=== PATIENT | male | born 1990 | race Hispanic/Latino ===

== ENCOUNTER 2020-08-26 07:01 | Emergency (ER) | payer BC, SELFPAY ==
[2020-08-26] VITALS (32 sets, daily range): BP systolic 83–137; BP diastolic 47–98; PULSE 80–110; RESP 16–18; TEMP 36.8–37.1; O2SAT 78–100
--- NOTE | ~2020-08-26 | CT_ITS ---
EXAMINATION: CT brain wo con DATE: 08/26/2020 11:43 INDICATION: Migraine headache. TECHNIQUE: Computed tomography (CT) of the head was performed without intravenous contrast. The mA wa s adjusted according to patient size. Iterative reconstruction technique was employed. The dose-lengt h product was 605.33 mGy-cm. COMPARISON: Head CT 03/12/2013, brain MRI 07/23/2011 FINDINGS: There is no intracranial hemorrhage, acute infarction, or abnormal intracranial mass lesion . The ventricles are normal in size. The orbits are normal. The paranasal sinuses are clear. The mast oid air cells are normal. IMPRESSION: 1. Normal brain. Reviewed, dictated and finalized at location [facility]. [facility] IMPRESSION: 1. Normal brain.
--- NOTE | 2020-08-26 07:22 | ED.HA ---
HPI - Headache General Chief Complaint: Headache Stated Complaint: migraine Time Seen by Provider: 08/26/20 07:12 Source: RN notes reviewed History of Present Illness HPI Narrative: Patient presents to emergency department from home for headache. Patient states he has a history of migraine headaches and took his Imitrex x2 yesterday with no relief. Patient states headache is located in the right frontal forehead does not radiate consistent with previous migraines states the current headache feels like his normal headache and is associated with nausea and vomiting and light sensitivity. Patient states he did take ibuprofen last last evening and Tylenol approximately 2 AM he denies any fevers or chills chest pain shortness of breath numbness or tingling in extremities or any other symptoms.. Patient is seeing his PCP for his migraines but does not seen a neurologist The patient has primarily [place]-speaking and family is present to translate Related Data Home Medications Medication Instructions Recorded Confirmed sumatriptan succinate mg PO 08/26/20 Allergies Allergy/AdvReac Type Severity Reaction Status Date / Time No Known Allergies Allergy Unverified 08/26/20 07:15 Review of Systems Review of Systems: Narrative: Gen.: Denies fevers or chills Eyes: Reports photosensitivity ENT: Denies congestion Respiratory: Denies shortness of breath or cough CV: Denies chest pain or palpitations GI: Denies abdominal pain. Reports nausea vomiting denies burning, urgency, frequency or hematuria Musculoskeletal: Denies back pain or muscle pain Neuro: See HPI Skin: Denies rash Except as documented, all other systems reviewed and negative [facility] Past Medical History Medical History (Updated 08/26/20 @ 14:15 by Denis Hansen DO) Migraine headache Social History Social History (Updated 08/26/20 @ 07:23 by Denis Hansen DO) Smoking status: Never smoker Gender identity (if verbalized by the patient): Male Sexual Orientation (if Verbalized by the Patient): Straight or Heterosexual Exam Narrative: Exam Narrative: APPEARANCE: No acute distress, nontoxic, resting in bed HEENT: Normocephalic, atraumatic, OMM, TMs clear bilaterally EYES: PERRL, EOMI NECK: Supple, nontender, full range of motion without pain, no meningismus RESPIRATORY: No respiratory distress, clear to auscultation bilaterally with no rhonchi wheezing or rales CARDIOVASCULAR: RRR s murmur ABDOMINAL: Soft, nontender, nondistended MUSCULOSKELETAL: Moves all extremities. No clubbing, cyanosis or edema. NEURO: A and O ?3, following commands, speech normal, cranial nerves II through XII grossly intact,muscle strength 5 out of 5 bilateral upper and lower extremities SKIN:: Warm, dry. Normal Color PSYCHIATRIC: Normal affect/mood Course Course Emergency Course: Patient initially with minimal change following Toradol and Tylenol I reviewed the old records patient has received narcotics for the past morphine given with improvement of pain patient is able to drink in ED with no emesis states emesis is resolved states he is ready for discharge I did discuss with patient his continued headache as well as with family they state he is acting like his normal self this is consistent with his normal migraines discussed possibility of lumbar puncture and the patient refuses at this time states he is ready for discharge Discussed with patient results of workup and diagnosis. Discussed need for follow-up with primary care, proper use of medication, and reasons to return to the emergency department. Patient understands and agrees to current treatment plan Vital Signs Vital signs: Vital Signs Temperature 98.2 F 08/26/20 07:12 Pulse Rate 110 H 08/26/20 07:12 Respiratory Rate 18 08/26/20 07:12 Blood Pressure 112/47 L 08/26/20 07:12 Pulse Oximetry 99 08/26/20 07:12 Temperature 98.2 F 08/26/20 07:12 Pulse Rate 97 08/26/20 13:00 Respiratory Rate
[2020-08-26] MEDS: ONDANSETRON INJ 4 MG/2 ML VIAL IV PUSH (07:35)
[2020-08-26] MEDS: diphenhydrAMINE HCl INJ 50 MG/ML VIAL 25 MG IV PUSH (07:35)
[2020-08-26] MEDS: SODIUM CHLORIDE 0.9% IV 1,000 ML 999 ML IV CONT ×2 (07:35→09:08)
[2020-08-26] MEDS: KETOROLAC 30 MG/ML VIAL (*BKC) IV PUSH (07:35)
[2020-08-26] MEDS: MORPHINE SULFATE (*CRX) 4 MG/ML INJ IV PUSH (11:31)
[2020-08-26 11:39] LABS: Basophils Percent Auto 0.1 % (0.2-1.2); Hematocrit 40.1 % (42.0-52.0); Hemoglobin 14.4 g/dL (14.0-18.0); Immature Granulocyte Absolute 0.04 K/mm3 (0.00-0.031); Immature Granulocyte Percent A 0.3 % (0-0.5); Lymphocytes Absolute Auto 1.37 K/mm3 (0.9-3.2); Lymphocytes Percent Auto 10.2 % (18.3-44.2); Mean Corpuscular HGB Conc 35.9 g/dl (32-36); Mean Corpuscular Volume 86.2 fl (80-100); Mean Platelet Volume 9.4 fl (7.4-10.4); Monocytes Percent Auto 7.5 % (2.6-8.5); Neutrophils Absolute Auto 10.9 K/mm3 (1.3-6.7); Neutrophils Percent Auto 81.9 % (45.5-73.1); Platelet Count Result 222 k/mm3 (150-375); Red Blood Count 4.65 M/mm3 (4.6-6.20); Red Cell Distribution Width 12.2 % (11.5-14.5); White Blood Count 13.4 K/mm3 (4.5-10.0)
[2020-08-26 11:48] LABS: INR 1.1; Prothrombin Time 14.9 Seconds (11.1-14.7)
[2020-08-26 11:49] LABS: Partial Thromboplastin Time 27.9 SECONDS (22.3-36.8)
[2020-08-26 11:51] LABS: Alanine Aminotransferase 19 U/L (4-50); Albumin Level 4.2 g/dL (3.5-5.1); Alkaline Phosphatase 51 U/L (38-126); Anion Gap 11 mmol/L (8-16); Aspartate Amino Transferase 19 U/L (17-59); Bilirubin,Total 0.9 mg/dL (0.2-1.3); Blood Urea Nitrogen 14 mg/dL (9-20); Calcium 8.9 mg/dL (8.4-10.2); Carbon Dioxide 19 mmol/L (22-30); Chloride 113 mmol/L (98-107); Estimated CRCL calculation 109 ml/min; Estimated Glomerular Filt Rate > 60; Glucose 121 mg/dL (75-110); Potassium 3.5 mmol/L (3.4-5.0); Sodium 143 mmol/L (137-145)
--- NOTE | 2020-08-26 13:50 | PC.NURSE ---
Pt tolerating apple juice without difficulty. States headache getting better but still aches. MD made aware. Will continue to monitor.
== END 2020-08-26 14:58 | disposition home or self-care (01) ==
PROVIDERS: Emergency Provider Emergency Medicine
DX: G43.909 Migraine, unspecified, not intractable, without status migrainosus (principal)
CPT/HCPCS: 36415; 70450; 80053; 85025; 85610; 85730; 96361; 96365; 96375; 99284; J0131; J1200; J1885; J2270; J2405; J7030